=== PATIENT | female | born 1950 | race Caucasian/White ===

== ENCOUNTER 2017-09-20 02:14 | Emergency (ER) | payer MEDICARE, OTHER ==
[2017-09-20 02:23] VITALS: RESP 18
[2017-09-20] MEDS ORDERED: ONDANSETRON 4 MG/2 ML VIAL IVP STA (02:36)
[2017-09-20] MEDS ORDERED: MORPHINE SULFATE 4 MG/ML SYRINGE IV STA (02:36)
[2017-09-20] MEDS ORDERED: KETOROLAC 30 MG/ML 1 ML VIAL IVP STA (02:36)
[2017-09-20] MEDS ORDERED: SODIUM CHLORIDE 0.9% 1,000 ML IV STA (02:36)
--- NOTE | 2017-09-20 02:38 | ED ---
General Adult HPI - General Chief complaint: Abdominal Pain Stated complaint: Side pain Time Seen by Provider: 09/20/17 02:20 Source: patient, RN notes reviewed, old records reviewed Mode of arrival: ambulatory Limitations: no limitations - History of Present Illness Initial comments: This is a 67-year-old female to the ER for evaluation. She presents today for evaluation in regards to flank pain severe right-sided flank pain rating to groin. Back. Sudden onset tonight. Patient states she does have history of similar symptoms with no formal diagnosis. No significant travel history. Mild blood in the urine. Patient states she feels like she has to urinate but cannot. No modifying factors for pain - Related Data Home Medications Medication Instructions Recorded Confirmed Cholecalciferol [Vitamin D3] 1,000 unit PO DAILY 03/13/16 09/20/17 L.acidoph,Paracasei, B.lactis 1 cap PO DAILY 03/13/16 09/20/17 [Probiotic] [place]-3 Fatty Acids/Fish Oil [Fish 1 cap PO TID 03/13/16 09/20/17 Oil 1,000 mg Softgel] Ubidecarenone [Coenzyme Q10] 10 mg PO DAILY 09/20/17 09/20/17 Allergies Allergy/AdvReac Type Severity Reaction Status Date / Time No Known Allergies Allergy Verified 09/20/17 02:22 Review of Systems ROS Statement: Those systems with pertinent positive or pertinent negative responses have been documented in the HPI. ROS Other: All systems not noted in ROS Statement are negative. Past Medical History Past Medical History: CVA/TIA History of Any Multi-Drug Resistant Organisms: None Reported Past Surgical History: Joint Replacement Additional Past Surgical History / Comment(s): right total hip Past Psychological History: No Psychological Hx Reported Smoking Status: Former smoker Past Alcohol Use History: Occasional Past Drug Use History: None Reported General Exam Limitations: no limitations General appearance: alert, in no apparent distress Head exam: Present: atraumatic, normocephalic, normal inspection Eye exam: Present: normal appearance, PERRL, EOMI. Absent: scleral icterus, conjunctival injection, periorbital swelling ENT exam: Present: normal exam, mucous membranes moist Neck exam: Present: normal inspection. Absent: tenderness, meningismus, lymphadenopathy Respiratory exam: Present: normal lung sounds bilaterally. Absent: respiratory distress, wheezes, rales, rhonchi, stridor Cardiovascular Exam: Present: regular rate, normal rhythm, normal heart sounds. Absent: systolic murmur, diastolic murmur, rubs, gallop, clicks GI/Abdominal exam: Present: soft, normal bowel sounds. Absent: distended, tenderness, guarding, rebound, rigid Extremities exam: Present: normal inspection, full ROM, normal capillary refill. Absent: tenderness, pedal edema, joint swelling, calf tenderness Back exam: Present: normal inspection Neurological exam: Present: alert, oriented X3, CN II-XII intact Psychiatric exam: Present: normal affect, normal mood Skin exam: Present: warm, dry, intact, normal color. Absent: rash Course Vital Signs 09/20/17 02:17 Temperature 98.8 F Pulse Rate 72 Respiratory 18 Rate Blood Pressure 163/86 O2 Sat by Pulse 98 Oximetry - Reevaluation(s) Reevaluation #1: 09/20/17 03:15 patient has pain control Medical Decision Making - Medical Decision Making 67 female with R flank pain, positive kidney stone, will treat with pain control and inc fluids, ok for dc home. - Lab Data Result diagrams: 09/20/17 02:37 09/20/17 02:37 Lab Results 09/20/17 09/20/17 09/20/17 Range/Units 02:24 02:37 02:37 WBC 14.3 H (3.8-10.6) k/uL RBC 4.66 (3.80-5.40) m/uL Hgb 14.3 (11.4-16.0) gm/dL Hct 42.3 (34.0-46.0) % MCV 90.8 (80.0-100.0) fL MCH 30.6 (25.0-35.0) pg MCHC 33.8 (31.0-37.0) g/dL RDW 12.4 (11.5-15.5) % Plt Count 243 (150-450) k/uL Neutrophils % 86 % Lymphocytes % 11 % Monocytes % 3 % Eosinophils % 0 % Basophils % 0 % Neutrophils # 12.2 H (1.3-7.7) k/uL Lymphocytes # 1.5 (1.0-4.8) k/uL Monocytes # 0.4 (0-1.0) k/uL Eosinophils # 0.0 (0-0.7) k/uL Basophils # 0.1 (0-0.2) k/uL Sodium 142 (137-145) mmol/L Potassium 3.8 (3.5-5.1) mmol/L Chloride 104 (98-107) mmol/L Carbon Dioxide 27 (22-30) mmol/L Anion Gap 11 mmol/L BUN 15 (7-17) mg/dL Creatinine 0.70 (0.52-1.04) mg/dL Est GFR (CKD-EPI)AfAm >90 (>60 ml/min/1.73 sqM) Est GFR (CKD-EPI)NonAf >90 (>60 ml/min/1.73 sqM) Glucose 172 H (74-99) mg/dL Calcium 9.3 (8.4-10.2) mg/dL Total Bilirubin 1.0 (0.2-1.3) mg/dL AST 21 (14-36) U/L ALT 32 (9-52) U/L Alkaline Phosphatase 60 (38-126) U/L Total Protein 7.3 (6.3-8.2) g/dL Albumin 4.4 (3.5-5.0) g/dL Amylase 69 (30-110) U/L Lipase 341 H (23-300) U/L Urine Color Light Red Urine Appearance Turbid H (Clear) Urine pH 5.0 (5.0-8.0) Ur Specific [place] 1.025 (1.001-1.035) Urine Protein 1+ H (Negative) Urine Glucose (UA) Negative (Negative) Urine Ketones Trace H (Negative) Urine Blood Large H (Negative) Urine Nitrite Negative (Negative) Urine Bilirubin Negative (Negative) Urine Urobilinogen <2.0 (<2.0) mg/dL Ur Leukocyte Esterase Trace H (Negative) Urine RBC >182 H (0-5) /hpf Urine WBC 6 H (0-5) /hpf Uric Acid Crystals Moderate H (None) /hpf Amorphous Sediment Rare H (None) /hpf Urine Bacteria Many H (None) /hpf Urine Mucus Many H (None) /hpf - Radiology Data Radiology results: report reviewed (CT abd pelvis positive for kidney stone), image reviewed Disposition Clinical Impression: Kidney stone, Right ureteral stone Disposition: HOME SELF-CARE Condition: Good Instructions: Kidney Stones (ED) Referrals: Poli Jorge MD [Primary Care Provider] - 1-2 days
[2017-09-20 02:57] LABS: Basophils # (A) 0.1 k/uL (0-0.2); Basophils % (A) 0 %; Eosinophils % (A) 0 %; HCT 42.3 % (34.0-46.0); HGB 14.3 gm/dL (11.4-16.0); Lymphocytes # (A) 1.5 k/uL (1.0-4.8); Lymphocytes % (A) 11 %; MCH 30.6 pg (25.0-35.0); MCHC 33.8 g/dL (31.0-37.0); MCV 90.8 fL (80.0-100.0); Mean Platelet Volume 7.5; Monocytes # (A) 0.4 k/uL (0-1.0); Monocytes % (A) 3 %; Neutrophils # (A) 12.2 k/uL (1.3-7.7); Neutrophils % (A) 86 %; Platelet Count 243 k/uL (150-450); RBC 4.66 m/uL (3.80-5.40); RDW 12.4 % (11.5-15.5); WBC 14.3 k/uL (3.8-10.6)
[2017-09-20 03:05] LABS: Amorphous Sediment,Urine Rare /hpf; Appearance,Urine Turbid (Clear); Bacteria,Urine Many /hpf; Bilirubin,Urine Negative (Negative); Blood,Urine Large (Negative); Color,Urine Light Red; Glucose,Urine (UA) Negative (Negative); Ketones,Urine Trace (Negative); Leukocyte Esterase,Urine Trace (Negative); Mucus,Urine Many /hpf; Nitrite,Urine Negative (Negative); Protein,Urine 1+ (Negative); RBC,Urine >182 /hpf (0-5); Specific Gravity,Urine 1.025 (1.001-1.035); Uric Acid Crystals,Urine Moderate /hpf; Urobilinogen,Urine <2.0 mg/dL (<2.0); WBC,Urine 6 /hpf (0-5)
--- NOTE | 2017-09-20 03:06 | CT ---
EXAMINATION TYPE: CT abdomen pelvis wo con DATE OF EXAM: 09/20/2017 COMPARISON: NONE HISTORY: Rt flank pain CT DLP: 584.70 mGycm Automated exposure control for dose reduction was used. TECHNIQUE: Helical acquisition of images was performed from the lung bases through the pelvis. FINDINGS: Lung bases are clear of consolidation. There is no pleural effusion. There is no pericardial effusion . There is a 2 cm cyst in the left lobe of the liver. Bile ducts are not dilated. Gallbladder appears normal. Spleen appears normal. There is no pancreatic mass. Kidneys have normal size. There is right-sided hydronephrosis. There is mild right-sided hydroureter. There is metal artifact from right hip prosthesis. There is a possible 3 mm calculus in the distal r ight ureter. There is no retroperitoneal adenopathy. There is no ascites. There is no sign of free air. Appendix a ppears normal. I see no intestinal wall thickening. There are no dilated loops. Bladder is almost emp ty. There is also a 2 mm calcification at the floor of the pelvis on the right sided could also be a stone in the distal right ureter at the ureterovesical junction. There are vascular calcifications in the pelvis. I see no bony destructive process. IMPRESSION: RIGHT-SIDED HYDRONEPHROSIS AND HYDROURETER. POSSIBLE TINY STONE AT THE RIGHT URETEROVESICAL JUNCTION. POSSIBLE SMALL CALCULUS IN THE DISTAL RIGHT URETER. NORMAL APPENDIX.
[2017-09-20 03:09] LABS: ALT 32 U/L (9-52); AST 21 U/L (14-36); Albumin 4.4 g/dL (3.5-5.0); Alkaline Phosphatase 60 U/L (38-126); Amylase 69 U/L (30-110); Anion Gap 11 mmol/L; Blood Urea Nitrogen 15 mg/dL (7-17); Calcium 9.3 mg/dL (8.4-10.2); Carbon Dioxide 27 mmol/L (22-30); Chloride 104 mmol/L (98-107); Glucose 172 mg/dL (74-99); Lipase 341 U/L (23-300); Potassium 3.8 mmol/L (3.5-5.1); Sodium 142 mmol/L (137-145); Total Protein 7.3 g/dL (6.3-8.2)
[2017-09-20 03:16] VITALS: BP 129/62; PULSE 79; TEMP 98.7
[2017-09-20] MEDS ORDERED: TAMSULOSIN 0.4 MG CAP.ER.24H PO STA (03:18)
== END 2017-09-20 03:31 | disposition home or self-care (01) ==
LOC: EC 02:14
DX: N20.2 Calculus of kidney with calculus of ureter (principal); Z86.73 Personal history of transient ischemic attack (TIA), and cerebral infarction without residual deficits; Z87.891 Personal history of nicotine dependence
CPT/HCPCS: 36415; 80053; 82150; 83690; 85025; 81001; 87086; 74176; 99284; 96374; 96375 ×2; 96361; J2270; J2405; J1885

== ENCOUNTER 2017-10-07 16:36 | Inpatient (IN) | payer MEDICARE, OTHER ==
[2017-10-07] MEDS ORDERED: MORPHINE SULFATE/PF 10MG/10ML VL IV STA (16:53)
[2017-10-07] MEDS ORDERED: SODIUM CHLORIDE 0.9% 1,000 ML IV STA ×2 (16:53→20:46)
[2017-10-07] MEDS ORDERED: RX INFO: IV CONTRAST WAS GIVEN 1 EACH MISC MISCELLANE PRN (16:53)
[2017-10-07 17:38] LABS: Basophils # (A) 0.1 k/uL (0-0.2); Basophils % (A) 1 %; Eosinophils # (A) 0.1 k/uL (0-0.7); Eosinophils % (A) 1 %; HCT 41.8 % (34.0-46.0); HGB 15.2 gm/dL (11.4-16.0); Lymphocytes # (A) 1.8 k/uL (1.0-4.8); Lymphocytes % (A) 25 %; MCH 32.5 pg (25.0-35.0); MCHC 36.5 g/dL (31.0-37.0); Mean Platelet Volume 6.5; Monocytes # (A) 0.3 k/uL (0-1.0); Monocytes % (A) 5 %; Neutrophils # (A) 4.8 k/uL (1.3-7.7); Neutrophils % (A) 67 %; Platelet Count 271 k/uL (150-450); RBC 4.69 m/uL (3.80-5.40); RDW 12.2 % (11.5-15.5); WBC 7.2 k/uL (3.8-10.6)
[2017-10-07 17:43] LABS: Appearance,Urine Cloudy (Clear); Bilirubin,Urine Negative (Negative); Blood,Urine Large (Negative); Budding Yeast,Urine Few /hpf; Color,Urine Yellow; Glucose,Urine (UA) Negative (Negative); Ketones,Urine Trace (Negative); Leukocyte Esterase,Urine Moderate (Negative); Mucus,Urine Few /hpf; Nitrite,Urine Negative (Negative); Protein,Urine 1+ (Negative); RBC,Urine >182 /hpf (0-5); Specific Gravity,Urine 1.021 (1.001-1.035); Squamous Epithelial Cell,Urine 4 /hpf (0-4); Urobilinogen,Urine <2.0 mg/dL (<2.0); WBC,Urine 19 /hpf (0-5)
[2017-10-07 17:48] LABS: ALT 46 U/L (9-52); AST 28 U/L (14-36); Albumin 4.5 g/dL (3.5-5.0); Alkaline Phosphatase 57 U/L (38-126); Amylase 192 U/L (30-110); Anion Gap 14 mmol/L; Blood Urea Nitrogen 11 mg/dL (7-17); Calcium 9.7 mg/dL (8.4-10.2); Carbon Dioxide 26 mmol/L (22-30); Chloride 104 mmol/L (98-107); Glucose 90 mg/dL (74-99); Potassium 4.4 mmol/L (3.5-5.1); Sodium 144 mmol/L (137-145); Total Bilirubin 0.7 mg/dL (0.2-1.3); Total Protein 7.4 g/dL (6.3-8.2)
[2017-10-07 17:55] LABS: Lipase 2774 U/L (23-300)
--- NOTE | 2017-10-07 18:24 | ED ---
General Adult HPI - General Chief complaint: Abdominal Pain Stated complaint: kidney stones Time Seen by Provider: 10/07/17 16:53 Source: patient, RN notes reviewed, old records reviewed Mode of arrival: ambulatory Limitations: no limitations - History of Present Illness Initial comments: This is a 67-year-old female to the ER for evaluation today. Patient does say for eval is regarding revisit regarding kidney stone. Patient began with left flank pain earlier today. Patient does have history of kidney stones. Significant medications, no modifying factors for pain. Patient denies dysuria. No fevers. No other abdominal pain. Mild nausea no vomiting. Patient states with prior kidney stone she took the Flomax did not like, Flomax metered-dose discontinued it. She states she may not drink be drinking as much water as - Related Data Home Medications Medication Instructions Recorded Confirmed L.acidoph,Paracasei, B.lactis 1 cap PO DAILY 03/13/16 10/07/17 [Probiotic] [place]-3 Fatty Acids/Fish Oil [Fish 1 cap PO TID 03/13/16 10/07/17 Oil 1,000 mg Softgel] Ubidecarenone [Coenzyme Q10] 10 mg PO DAILY 09/20/17 10/07/17 Garlic 1 tab PO DAILY 10/07/17 10/07/17 Turmeric Root Extract [Turmeric] 500 mg PO DAILY 10/07/17 10/07/17 Previous Rx's Medication Instructions Recorded Ondansetron Odt [Zofran ODT] 4 mg PO Q8HR PRN #30 tab 10/07/17 Cephalexin [Keflex] 250 mg PO TID #15 cap 10/09/17 Allergies Allergy/AdvReac Type Severity Reaction Status Date / Time tamsulosin [From Flomax] AdvReac Dyspnea Verified 10/07/17 17:34 Review of Systems ROS Statement: Those systems with pertinent positive or pertinent negative responses have been documented in the HPI. ROS Other: All systems not noted in ROS Statement are negative. Past Medical History Past Medical History: CVA/TIA History of Any Multi-Drug Resistant Organisms: None Reported Past Surgical History: Joint Replacement Additional Past Surgical History / Comment(s): right total hip Past Psychological History: No Psychological Hx Reported Smoking Status: Former smoker Past Alcohol Use History: Occasional Past Drug Use History: None Reported - Past Family History Father Family Medical History: Myocardial Infarction ([place]) General Exam Limitations: no limitations General appearance: alert, in no apparent distress Head exam: Present: atraumatic, normocephalic, normal inspection Eye exam: Present: normal appearance, PERRL, EOMI. Absent: scleral icterus, conjunctival injection, periorbital swelling ENT exam: Present: normal exam, mucous membranes moist Neck exam: Present: normal inspection. Absent: tenderness, meningismus, lymphadenopathy Respiratory exam: Present: normal lung sounds bilaterally. Absent: respiratory distress, wheezes, rales, rhonchi, stridor Cardiovascular Exam: Present: regular rate, normal rhythm, normal heart sounds. Absent: systolic murmur, diastolic murmur, rubs, gallop, clicks GI/Abdominal exam: Present: soft, normal bowel sounds. Absent: distended, tenderness, guarding, rebound, rigid Extremities exam: Present: normal inspection, full ROM, normal capillary refill. Absent: tenderness, pedal edema, joint swelling, calf tenderness Back exam: Present: normal inspection Neurological exam: Present: alert, oriented X3, CN II-XII intact Psychiatric exam: Present: normal affect, normal mood Skin exam: Present: warm, dry, intact, normal color. Absent: rash Course Vital Signs 10/07/17 10/07/17 10/07/17 16:48 19:25 21:16 Temperature 98.2 F 98.4 F 97.7 F Pulse Rate 74 78 78 Respiratory 18 18 18 Rate Blood Pressure 172/95 141/78 154/78 O2 Sat by Pulse 97 96 97 Oximetry - Reevaluation(s) Reevaluation #1: 10/07/17 18:24 Medical record is reviewed including prior ER visit for positive kidney stone Reevaluation #2: 10/07/17 18:24 Patient does not want further CAT scan imaging. Medical Decision Making - Medical Decision Making 67 female the ER for evaluation of abdominal pain. Patient states she does have history of kidney stones, does not want further imaging regarding kidney stones. The pain is significant. It is same flank pain with same radiation. Patient denies any nausea vomiting and epigastric pain. Patient is also found to have pancreatitis. - Lab Data Result diagrams: 10/08/17 11:37 10/08/17 11:37 Lab Results 10/07/17 10/07/17 10/07/17 Range/Units 16:50 16:50 16:50 WBC 7.2 (3.8-10.6) k/uL RBC 4.69 (3.80-5.40) m/uL Hgb 15.2 (11.4-16.0) gm/dL Hct 41.8 (34.0-46.0) % MCV 89.0 (80.0-100.0) fL MCH 32.5 (25.0-35.0) pg MCHC 36.5 (31.0-37.0) g/dL RDW 12.2 (11.5-15.5) % Plt Count 271 (150-450) k/uL Neutrophils % 67 % Lymphocytes % 25 % Monocytes % 5 % Eosinophils % 1 % Basophils % 1 % Neutrophils # 4.8 (1.3-7.7) k/uL Lymphocytes # 1.8 (1.0-4.8) k/uL Monocytes # 0.3 (0-1.0) k/uL Eosinophils # 0.1 (0-0.7) k/uL Basophils # 0.1 (0-0.2) k/uL Sodium 144 (137-145) mmol/L Potassium 4.4 (3.5-5.1) mmol/L Chloride 104 (98-107) mmol/L Carbon Dioxide 26 (22-30) mmol/L Anion Gap 14 mmol/L BUN 11 (7-17) mg/dL Creatinine 0.68 (0.52-1.04) mg/dL Est GFR (CKD-EPI)AfAm >90 (>60 ml/min/1.73 sqM) Est GFR (CKD-EPI)NonAf >90 (>60 ml/min/1.73 sqM) Glucose 90 (74-99) mg/dL Plasma Lactic Acid [place] 1.9 (0.7-2.0) mmol/L Calcium 9.7 (8.4-10.2) mg/dL Total Bilirubin 0.7 (0.2-1.3) mg/dL AST 28 (14-36) U/L ALT 46 (9-52) U/L Alkaline Phosphatase 57 (38-126) U/L Total Protein 7.4 (6.3-8.2) g/dL Albumin 4.5 (3.5-5.0) g/dL Amylase 192 H (30-110) U/L Lipase 2774 H (23-300) U/L Urine Color Urine Appearance (Clear) Urine pH (5.0-8.0) Ur Specific [place] (1.001-1.035) Urine Protein (Negative) Urine Glucose (UA) (Negative) Urine Ketones (Negative) Urine Blood (Negative) Urine Nitrite (Negative) Urine Bilirubin (Negative) Urine Urobilinogen (<2.0) mg/dL Ur Leukocyte Esterase (Negative) Urine RBC (0-5) /hpf Urine WBC (0-5) /hpf Ur Squamous Epith Cells (0-4) /hpf Urine Mucus (None) /hpf Urine Yeast (Budding) (None) /hpf 10/07/17 Range/Units 16:50 WBC (3.8-10.6) k/uL RBC (3.80-5.40) m/uL Hgb (11.4-16.0) gm/dL Hct (34.0-46.0) % MCV (80.0-100.0) fL MCH (25.0-35.0) pg MCHC (31.0-37.0) g/dL RDW (11.5-15.5) % Plt Count (150-450) k/uL Neutrophils % % Lymphocytes % % Monocytes % % Eosinophils % % Basophils % % Neutrophils # (1.3-7.7) k/uL Lymphocytes # (1.0-4.8) k/uL Monocytes # (0-1.0) k/uL Eosinophils # (0-0.7) k/uL Basophils # (0-0.2) k/uL Sodium (137-145) mmol/L Potassium (3.5-5.1) mmol/L Chloride (98-107) mmol/L Carbon Dioxide (22-30) mmol/L Anion Gap mmol/L BUN (7-17) mg/dL Creatinine (0.52-1.04) mg/dL Est GFR (CKD-EPI)AfAm (>60 ml/min/1.73 sqM) Est GFR (CKD-EPI)NonAf (>60 ml/min/1.73 sqM) Glucose (74-99) mg/dL Plasma Lactic Acid [place] (0.7-2.0) mmol/L Calcium (8.4-10.2) mg/dL Total Bilirubin (0.2-1.3) mg/dL AST (14-36) U/L ALT (9-52) U/L Alkaline Phosphatase (38-126) U/L Total Protein (6.3-8.2) g/dL Albumin (3.5-5.0) g/dL Amylase (30-110) U/L Lipase (23-300) U/L Urine Color Yellow Urine Appearance Cloudy H (Clear) Urine pH 5.0 (5.0-8.0) Ur Specific [place] 1.021 (1.001-1.035) Urine Protein 1+ H (Negative) Urine Glucose (UA) Negative (Negative) Urine Ketones Trace H (Negative) Urine Blood Large H (Negative) Urine Nitrite Negative (Negative) Urine Bilirubin Negative (Negative) Urine Urobilinogen <2.0 (<2.0) mg/dL Ur Leukocyte Esterase Moderate H (Negative) Urine RBC >182 H (0-5) /hpf Urine WBC 19 H (0-5) /hpf Ur Squamous Epith Cells 4 (0-4) /hpf Urine Mucus Few H (None) /hpf Urine Yeast (Budding) Few H (None) /hpf - Radiology Data Radiology results: report reviewed (Ultrasound reveals ultrasound gallbladder is negative), image reviewed Disposition Clinical Impression: Kidney stone, Right ureteral stone, Pancreatitis Disposition: ADMITTED IP TO THIS [facility] Condition: Fair
[2017-10-07] MEDS ORDERED: KETOROLAC 30 MG/ML 1 ML VIAL IVP STA (18:40)
--- NOTE | 2017-10-07 19:04 | US ---
EXAMINATION TYPE: US renals and bladder DATE OF EXAM: 10/07/2017 COMPARISON: NONE CLINICAL HISTORY: Pain. RLQ pain hx of stone EXAM MEASUREMENTS: Right Kidney: 10.6 x 5.2 x 4.7 cm Left Kidney: 10.1 x 4.7 x 4.6 cm Lobulated kidneys mild hydronephrosis on right side. Tiny calculi seen on ct scan not seen on ultraso und. Right Kidney: Hydronephrosis Left Kidney: No hydronephrosis or masses seen Bladder: Anechoic Bilateral Jets seen: Yes No nephrolithiasis is seen. No masses are identified. The urinary bladder is anechoic. Bilateral ureteral jets are seen. IMPRESSION: There is new right-sided hydronephrosis compared to old ultrasound exam of 05/22/2014. There is no hy dronephrosis on the left side. No renal atrophy. There are bilateral ureteral jets and I do not see e vidence for acute obstruction.
--- NOTE | 2017-10-07 20:32 | US ---
EXAMINATION TYPE: US gallbladder DATE OF EXAM: 10/07/2017 COMPARISON: NONE CLINICAL HISTORY: Pain. Pain elevated labs. EXAM MEASUREMENTS: Liver Length: 16.4 cm Gallbladder Wall: 0.3 cm CBD: 0.5 cm Right Kidney: 10.7 x 5.7 x 5.3 cm Pancreas: Obscured by bowel gas Liver: Complex area seen left lobe measuring 1.8 x 1.1 x 2.3 cm. Gallbladder: wnl Evidence for sonographic Webster's sign: No CBD: wnl Right Kidney: Mild to moderate hydronephrosis. IMPRESSION: There is mild right-sided hydronephrosis. No gallstones or dilated ducts. There is an ova l-shaped area of complex echogenicity in the left lobe of the liver that could be hemangioma or septa nilson cyst. No free fluid. Right-sided hydronephrosis and liver lesion are unchanged compared to CT sca n of 09/20/2017.
[2017-10-07] MEDS ORDERED: SODIUM CHLORIDE 0.9% 1,000 ML IV ONE (20:45)
[2017-10-07] MEDS ORDERED: ONDANSETRON 4 MG/2 ML VIAL IVP PRN (20:46)
[2017-10-07] MEDS ORDERED: ONDANSETRON 4 MG/2 ML VIAL IVP STA (20:46)
[2017-10-07] MEDS ORDERED: SODIUM CHLORIDE 0.9% 500 ML IV STA (20:46)
[2017-10-07] MEDS ORDERED: PANTOPRAZOLE 40 MG/10 ML VIAL IVP STA (20:46)
[2017-10-07] MEDS ORDERED: MORPHINE SULFATE/PF 10MG/10ML VL IVP PRN (20:46)
[2017-10-07 23:06] VITALS: BMI 32.2
[2017-10-08] MEDS: PANTOPRAZOLE 40 MG/10 ML VIAL IVP SCH (08:58)
[2017-10-08 11:50] LABS: Basophils # (A) 0.1 k/uL (0-0.2); Basophils % (A) 1 %; Eosinophils # (A) 0.1 k/uL (0-0.7); Eosinophils % (A) 1 %; HCT 38.3 % (34.0-46.0); HGB 13.3 gm/dL (11.4-16.0); Lymphocytes # (A) 1.8 k/uL (1.0-4.8); Lymphocytes % (A) 34 %; MCH 31.5 pg (25.0-35.0); MCHC 34.6 g/dL (31.0-37.0); Mean Platelet Volume 7.8; Monocytes # (A) 0.3 k/uL (0-1.0); Monocytes % (A) 6 %; Neutrophils # (A) 3.1 k/uL (1.3-7.7); Neutrophils % (A) 57 %; Platelet Count 217 k/uL (150-450); RBC 4.21 m/uL (3.80-5.40); RDW 12.4 % (11.5-15.5); WBC 5.4 k/uL (3.8-10.6)
[2017-10-08] MEDS: SODIUM CHLORIDE 0.9% 1,000 ML IV SCH ×2 (11:58→21:05)
[2017-10-08 12:08] LABS: ALT 39 U/L (9-52); AST 24 U/L (14-36); Albumin 3.4 g/dL (3.5-5.0); Alkaline Phosphatase 46 U/L (38-126); Anion Gap 11 mmol/L; Blood Urea Nitrogen 8 mg/dL (7-17); Calcium 8.7 mg/dL (8.4-10.2); Carbon Dioxide 25 mmol/L (22-30); Chloride 109 mmol/L (98-107); Glucose 81 mg/dL (74-99); Sodium 145 mmol/L (137-145); Total Bilirubin 1.3 mg/dL (0.2-1.3)
--- NOTE | 2017-10-08 13:58 | HP ---
HISTORY AND PHYSICAL DATE OF ADMISSION: 10/07/2017. PRESENTING COMPLAINT: Right flank pain. HISTORY OF PRESENTING COMPLAINT: This is a very pleasant 67-year-old patient of Dr. Poli Jorge out of [facility]. Patient has had a history of kidney stones before. Had a stroke 10 years ago. Patient presents with increasing pain in the right flank, very minimal nausea, no fever, noticed some blood in the urine with urinary urgency, feeling tired, run down. In the ER, patient is found to have acute pancreatitis, was made n.p.o. with amylase 192 and lipase of 2774. Urine was rather infected-appearing. Patient was put on IV fluids and admitted for the same. REVIEW OF SYSTEMS: CONSTITUTIONAL: Tired. HEENT: None. RESPIRATORY: None. CARDIOVASCULAR: None. GASTROINTESTINAL: As above. GENITOURINARY: As above. MUSCULOSKELETAL: Arthritic pain in knees. DERMATOLOGICAL: None. HEMATOLOGICAL: None. LYMPHATIC: None. PSYCHIATRY: None. NEUROLOGICAL: None. PAST MEDICAL HISTORY: Kidney stones, stroke. PAST SURGICAL HISTORY: Right hip replacement. SOCIAL HISTORY: Patient drinks a: glass of wine a day, stopped smoking 10 years ago, smoked off and on for about 30 years, . FAMILY HISTORY: Myocardial infarction. HOME MEDICATIONS: 1. Turmeric 5 mg p.o. daily. 2. Garlic 1 tablet p.o. daily. 3. CO Q10 tent mg p.o. daily. 4. Fish oil 1 capsule p.o. t.i.d. 5. Probiotic 1 capsule p.o. daily. 6. Vitamin D3 five thousand units p.o. daily. 7. Zofran 4 mg q.8 p.r.n. ALLERGIES: FLOMAX. PHYSICAL EXAMINATION: Vital signs on presentation, afebrile, pulse 74, respiratory rate 18, blood pressure 132/75, pulse ox 97% on room air, repeat blood pressure 140/78. GENERAL APPEARANCE: Well built, BMI 32.2, sitting up, not in distress. EYES: Pupils equal, conjunctivae normal. HEENT: External appearance of nose and ears normal, oral cavity normal. NECK: JVD not raised. Mass not palpable. Respiratory effort normal. Lungs are clear. CARDIOVASCULAR: First and second sounds are normal, no edema. ABDOMEN: Minimal upper abdominal tenderness, minimal in the right flank. No guarding, rigidity. Liver and spleen not palpable. LYMPHATIC: No lymph palpable in neck or axillae. PSYCHIATRY: Alert and oriented x3. Mood and affect normal. NEUROLOGICAL: Pupils equal, cranial nerves grossly intact. Power and sensation grossly intact. MUSCULOSKELETAL: Evidence of some osteoarthritis in the knees. INVESTIGATIONS: White count 7.2, hemoglobin 15.2, platelets 271. Potassium 4.4, BUN and creatinine is normal. Amylase 192, lipase 2074. UA positive for blood, leuko esterase, WBC. Renal ultrasound shows new right-sided hydronephrosis compared to old ultrasound. Gallbladder ultrasound shows no gallstones with dilated ducts. ASSESSMENT: 1. Acute pancreatitis, likely idiopathic. 2. Acute urinary tract infection. 3. Right hydronephrosis, reported to be new on the renal ultrasound. There is no mention of an obvious stone. PLAN: Patient is put on IV fluids. Abdominal exam is actually improved. Will repeat pancreatic enzymes. Will get a urology consultation. I started the patient on oral Keflex for the UTI. Care was discussed with the patient's at the bedside. Questions were answered. MMODL / IJN: [id number] /
[2017-10-08] MEDS: CEPHALEXIN 250 MG CAP PO SCH ×2 (14:13→21:04)
[2017-10-08 14:21] LABS: Amylase 55 U/L (30-110); Lipase 105 U/L (23-300)
[2017-10-08] MEDS: ENOXAPARIN 40 MG/0.4 ML SYRINGE SQ SCH (16:19)
[2017-10-09 07:39] LABS: Amylase 49 U/L (30-110); Lipase 140 U/L (23-300)
[2017-10-09 07:59] VITALS: RESP 18
[2017-10-09] MEDS: PANTOPRAZOLE 40 MG/10 ML VIAL IVP SCH (08:21)
[2017-10-09] MEDS: CEPHALEXIN 250 MG CAP PO SCH ×2 (08:21→16:51)
[2017-10-09] MEDS: ENOXAPARIN 40 MG/0.4 ML SYRINGE SQ SCH (08:21)
[2017-10-09] MEDS: SODIUM CHLORIDE 0.9% 1,000 ML IV SCH ×2 (08:21→16:50)
--- NOTE | 2017-10-09 10:13 | P.GSCN ---
History of Present Illness Consult date: 10/09/17 Reason for Consult: Right hydronephrosis History of present illness: The patient is a 67-year-old female admitted through the emergency room on 10/07 for evaluation of right flank pain and possible acute pancreatitis. The patient said her pain was associated with nausea and vomiting, urinary urgency and some blood in her urine. She has a history of a right ureteral calculus which was identified on a noncontrast computed tomography scan of the abdomen and pelvis performed on 09/20/2017. At that time the calculus appeared to be less than 2 mm in size and located at the right ureterovesical junction. The patient believes that she passed the calculus several weeks ago and says she was comfortable up until the date of admission. When seen in the emergency room she was noted to have microscopic hematuria and a renal ultrasound on 10/07 showed mild to moderate hydronephrosis. The patient was also noted to have an amylase of 192 and a lipase of 2774. She was presumed to have acute pancreatitis and was admitted for further evaluation. She says that she has remained relatively comfortable since she was admitted. She no longer has any urinary urgency or hematuria. She was not able to strain her urine on all occasions since she was admitted and is uncertain as to whether she has passed another small calculus. The patient has no previous history of urolithiasis although she did have an episode of right flank pain 3 years ago. Her family history is significant in that her daughter has had kidney stones. She has no previous history of pancreatitis. 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) History of Any Multi-Drug Resistant Organisms: None Reported Past Surgical History: Joint Replacement (Right total hip arthroplasty) Additional Past Surgical History / Comment(s): right total hip Past Anesthesia/Blood Transfusion Reactions: No Reported Reaction Past Psychological History: No Psychological Hx Reported Smoking Status: Former smoker Past Alcohol Use History: Occasional Past Drug Use History: None Reported - Past Family History Father Family Medical History: Myocardial Infarction ([place]) Medications and Allergies Home Medications Medication Instructions Recorded Confirmed Type Cholecalciferol [Vitamin D3] 5,000 unit PO DAILY 03/13/16 10/07/17 History L.acidoph,Paracasei, B.lactis 1 cap PO DAILY 03/13/16 10/07/17 History [Probiotic] [place]-3 Fatty Acids/Fish Oil [Fish 1 cap PO TID 03/13/16 10/07/17 History Oil 1,000 mg Softgel] Ubidecarenone [Coenzyme Q10] 10 mg PO DAILY 09/20/17 10/07/17 History Garlic 1 tab PO DAILY 10/07/17 10/07/17 History Ondansetron Odt [Zofran ODT] 4 mg PO Q8HR PRN #30 tab 10/07/17 Rx Turmeric Root Extract [Turmeric] 500 mg PO DAILY 10/07/17 10/07/17 History Allergies Allergy/AdvReac Type Severity Reaction Status Date / Time tamsulosin [From Flomax] AdvReac Dyspnea Verified 10/07/17 17:34 Surgical - Exam Vital Signs Temp Pulse Resp BP Pulse Ox 98.2 F 74 18 172/95 97 10/07/17 16:48 10/07/17 16:48 10/07/17 16:48 10/07/17 16:48 10/07/17 16:48 - General well developed, well nourished, no distress, obese - Respiratory normal respiratory effort - Abdomen Abdomen: soft, non tender, no organomegaly Results - Labs 10/08/17 11:37 10/08/17 11:37 Abnormal Lab Results - Last 24 Hours (Table) 10/08/17 Range/Units 11:37 Chloride 109 H (98-107) mmol/L Total Protein 6.0 L (6.3-8.2) g/dL Albumin 3.4 L (3.5-5.0) g/dL Microbiology - Last 24 Hours (Table) 10/07/17 16:50 Urine Culture - Final Urine,Voided Diabetes panel 10/08/17 Range/Units 11:37 Sodium 145 (137-145) mmol/L Potassium 4.0 (3.5-5.1) mmol/L Chloride 109 H (98-107) mmol/L Carbon Dioxide 25 (22-30) mmol/L BUN 8 (7-17) mg/dL Creatinine 0.60 (0.52-1.04) mg/dL Glucose 81 (74-99) mg/dL Calcium 8.7 (8.4-10.2) mg/dL AST 24 (14-36) U/L ALT 39 (9-52) U/L Alkaline Phosphatase 46 (38-126) U/L Total Protein 6.0 L (6.3-8.2) g/dL Albumin 3.4 L (3.5-5.0) g/dL Calcium panel 10/08/17 Range/Units 11:37 Calcium 8.7 (8.4-10.2) mg/dL Albumin 3.4 L (3.5-5.0) g/dL Pituitary panel 10/08/17 Range/Units 11:37 Sodium 145 (137-145) mmol/L Potassium 4.0 (3.5-5.1) mmol/L Chloride 109 H (98-107) mmol/L Carbon Dioxide 25 (22-30) mmol/L BUN 8 (7-17) mg/dL Creatinine 0.60 (0.52-1.04) mg/dL Glucose 81 (74-99) mg/dL Calcium 8.7 (8.4-10.2) mg/dL Adrenal panel 10/08/17 Range/Units 11:37 Sodium 145 (137-145) mmol/L Potassium 4.0 (3.5-5.1) mmol/L Chloride 109 H (98-107) mmol/L Carbon Dioxide 25 (22-30) mmol/L BUN 8 (7-17) mg/dL Creatinine 0.60 (0.52-1.04) mg/dL Glucose 81 (74-99) mg/dL Calcium 8.7 (8.4-10.2) mg/dL Total Bilirubin 1.3 (0.2-1.3) mg/dL AST 24 (14-36) U/L ALT 39 (9-52) U/L Alkaline Phosphatase 46 (38-126) U/L Total Protein 6.0 L (6.3-8.2) g/dL Albumin 3.4 L (3.5-5.0) g/dL - Imaging CT scan - abdomen: image reviewed, other Assessment and Plan (1) Right ureteral stone Narrative/Plan: The patient's history and renal ultrasound are consistent with recent passage of a small right ureteral calculus. This would explain her abdominal and flank pain on admission. I believe the likelihood that she had acute pancreatitis at the same time is very low based on the rapid normalization of her lipase level within 24 hours of admission and the normal amylase levels. I plan no further evaluation. Current Visit: Yes Status: Acute Code(s): N20.1 - CALCULUS OF URETER SNOMED Code(s): 05657420
[2017-10-09 15:06] VITALS: PULSE 83; TEMP 97.9
[2017-10-09 15:08] VITALS: BP 122/66
--- NOTE | 2017-10-09 17:24 | P.CONS ---
History of Present Illness - Reason for Consult Consult date: 10/09/17 Pancreatitis - History of Present Illness The patient is a 67-year-old female who was admitted through the emergency room on 10/07 for evaluation of right flank pain and possible acute pancreatitis. The patient said her pain was associated with nausea and vomiting, urinary urgency and some blood in her urine. She has a history of a right ureteral calculus which was identified on a noncontrast computed tomography scan of the abdomen and pelvis performed on 09/20/2017. At that time the calculus appeared to be less than 2 mm in size and located at the right ureterovesical junction. The patient believes that she passed the calculus shortly after that and she promoted for analysis to her PCP office. She says she was comfortable up until the date of this admission. When seen in the emergency room she was noted to have microscopic hematuria and a renal ultrasound on 10/07 showed mild to moderate hydronephrosis. The patient was also noted to have an amylase of 192 and a lipase of 2774. She was presumed to have acute pancreatitis and was admitted for further evaluation. When asked to see her for possible pancreatitis. The patient had elevation in her lipase back on September 20. Both times her lipase has improved fairly quickly. She denied any history of alcohol dependency or gallbladder disease. No jaundice, fever or chills. Review of Systems Constitutional: Denies fever, chills, sweats, weight gain, or loss. HEENT: Negative for migraines, blurred vision or loss, earaches, drainage, tinnitus, oral mucosal lesions, dysphagia, or odynophagia. CARDIAC: Negative for chest pain, arrhythmias, or palpitation. RESPIRATORY: Negative for shortness of breath, hemoptysis, cough, or sputum production. GI: See HPI for pertinent findings. : Negative for hematuria, urgency, frequency, polyuria, or dysuria. MUSCULOSKELETAL: Negative for muscle aches, swelling, arthritis, and arthralgias. NEUROLOGIC: Negative for stroke or TIA. ENDOCRINE: Negative for thyroid problems. SKIN: Negative for rash or itching. 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) History of Any Multi-Drug Resistant Organisms: None Reported Past Surgical History: Joint Replacement (Right total hip arthroplasty) Additional Past Surgical History / Comment(s): right total hip Past Anesthesia/Blood Transfusion Reactions: No Reported Reaction Past Psychological History: No Psychological Hx Reported Smoking Status: Former smoker Past Alcohol Use History: Occasional Past Drug Use History: None Reported - Past Family History Father Family Medical History: Myocardial Infarction ([place]) Medications and Allergies Home Medications Medication Instructions Recorded Confirmed Type L.acidoph,Paracasei, B.lactis 1 cap PO DAILY 03/13/16 10/07/17 History [Probiotic] [place]-3 Fatty Acids/Fish Oil [Fish 1 cap PO TID 03/13/16 10/07/17 History Oil 1,000 mg Softgel] Ubidecarenone [Coenzyme Q10] 10 mg PO DAILY 09/20/17 10/07/17 History Garlic 1 tab PO DAILY 10/07/17 10/07/17 History Ondansetron Odt [Zofran ODT] 4 mg PO Q8HR PRN #30 tab 10/07/17 Rx Turmeric Root Extract [Turmeric] 500 mg PO DAILY 10/07/17 10/07/17 History Cephalexin [Keflex] 250 mg PO TID #15 cap 10/09/17 Rx Allergies Allergy/AdvReac Type Severity Reaction Status Date / Time tamsulosin [From Flomax] AdvReac Dyspnea Verified 10/07/17 17:34 Physical Exam Vitals: Vital Signs Temp Pulse Resp BP Pulse Ox 10/09/17 15:00 97.9 F 83 18 122/66 91 L 10/09/17 07:00 99.2 F 64 18 137/74 96 10/08/17 23:00 97.1 F L 66 16 132/80 97 Intake and Output 10/09/17 10/09/17 10/09/17 06:59 14:59 22:59 Intake Total 800 2000 Balance 800 2000 Intake: Intake, IV Titration 800 800 Amount Sodium Chloride 0.9% 1, 800 800 000 ml @ 100 mls/hr IV . Q10H [facility] Rx#:[id number] Oral 1200 Other: Voiding Method Toilet Toilet # Voids 0 2 Weight 85.132 kg General appearance: The patient is alert, oriented, in no acute distress. HET: Head is normocephalic and atraumatic. Pupils are equal and reactive. Oropharynx is clear without lesions. Neck: Supple without lymphadenopathy. Trachea midline. Heart: S1 S2. Regular rate and rhythm. Lungs: No crackles or wheezes are heard. Abdomen: Soft, nontender, nondistended with bowel sounds. No peritoneal signs. No palpable organomegaly or masses. Extremities: Normal skin color and turgor. No cyanosis, rash, ulceration, clubbing, or edema. Radial and pedal pulses are 2/4 bilaterally. Neurological: No focal deficits. Strength and sensation are grossly intact. Results CBC & Chem 7: 10/08/17 11:37 10/08/17 11:37 Labs: Microbiology - Last 24 Hours (Table) 10/07/17 16:50 Urine Culture - Final Urine,Voided Assessment and Plan Assessment: Right flank pain and elevated lipase and right hydronephrosis most likely related to ureteral calculus as opposed to pancreatitis. The patient has improved and her lipase is now normal Plan: Agree with your current management. I did not schedule any additional workup for possible pancreatic or biliary tract disease at this time. We will keep that as a contingency based on her course.
--- NOTE | 2017-10-09 21:16 | DS ---
DISCHARGE SUMMARY DATE OF ADMISSION: 10/07/2017. DATE OF DISCHARGE: 10/09/2017 FINAL DIAGNOSES: 1. Acute pancreatitis, idiopathic. 2. Acute urinary tract infection. 3. Right hydronephrosis felt to be chronic. 4. Possible right ureteral stone that she passed. CONSULTATION: Dr. Tovar from Urology. HOSPITAL COURSE: This patient presented with abdominal pain, found to have acute pancreatitis that resolved, also found to have UTI. The patient had right hydronephrosis felt to be possibly chronic. Seen by Dr. Tovar. The patient may have had a right ureteral stone that probably passed. EXAMINATION: Abdomen is soft, nontender. Patient did tolerate a diet, told to maintain a low-fat diet. The patient's calcium supplement has been discontinued because of the stones. DISCHARGE MEDICATIONS: 1. Probiotic 1 capsule p.o. daily. 2. Fish oil 1000 mg p.o. t.i.d. 3. Keflex 250 mg p.o. t.i.d. Follow up with Dr. Tovar in 2 weeks. Follow up with Dr. Poli Jorge in [facility] in 3 days. DIET: Low-fat diet. MMODL / IJN: [id number] /
== END 2017-10-09 18:25 | disposition home or self-care (01) | DRG 439 ==
LOC: EC 16:36 → 5MS5E 20:45
PROVIDERS: ADMIT Hospitalist; ATTEND Hospitalist
DX: K85.00 Idiopathic acute pancreatitis without necrosis or infection (principal); N13.2 Hydronephrosis with renal and ureteral calculous obstruction; N39.0 Urinary tract infection, site not specified; Z82.49 Family history of ischemic heart disease and other diseases of the circulatory system; Z86.73 Personal history of transient ischemic attack (TIA), and cerebral infarction without residual deficits; Z87.442 Personal history of urinary calculi; Z87.891 Personal history of nicotine dependence; Z96.641 Presence of right artificial hip joint; Z88.8 Allergy status to other drugs, medicaments and biological substances; Z79.899 Other long term (current) drug therapy
CPT/HCPCS: 36415; 76705; 76770; 80053; 81001; 82150; 83605; 83690; 85025; 87086; 96361; 96374; 96375; 99285

== ENCOUNTER → 2020-08-19 | Outpatient (CLI) | payer MEDICARE, OTHER ==
[2020-08-19 15:01] LABS: Basophils # (A) 0.05 X 10*3/uL (0.00-0.10); Eosinophils # (A) 0.09 X 10*3/uL (0.04-0.35); Eosinophils % (A) 1.7 %; HCT 45.2 % (37.2-46.3); HGB 15.3 g/dL (12.0-15.0); Lymphocytes # (A) 1.91 X 10*3/uL (0.90-5.00); Lymphocytes % (A) 36.4 %; MCH 31.5 pg (27.0-32.0); MCHC 33.8 g/dL (32.0-37.0); MCV 93.2 fL (80.0-97.0); Mean Platelet Volume 9.7 fL (9.5-12.2); Monocytes # (A) 0.44 X 10*3/uL (0.20-1.00); Monocytes % (A) 8.4 %; Neutrophils # (A) 2.76 X 10*3/uL (1.80-7.70); Neutrophils % (A) 52.5 %; Platelet Count 260 X 10*3/uL (140-440); RBC 4.85 X 10*6/uL (4.10-5.20); RDW 11.8 % (11.5-14.5); WBC 5.25 X 10*3/uL (4.50-10.00)
[2020-08-19 15:40] LABS: African American GFR (CKD) 103.2 (60.0-200.0); Albumin 4.7 g/dL (3.80-4.90); Albumin/Globulin Ratio 2.35 (1.60-3.17); Anion Gap 5.8 mmol/L (4.00-12.00); BUN/Creat Ratio 15.71 Ratio (12.00-20.00); Calcium 9.4 mg/dL (8.7-10.3); Carbon Dioxide 30.2 mmol/L (21.6-31.8); Chol/HDL Ratio 3.5; LDL Cholesterol,Calculated 133.8 mg/dL (0.0-131.0); Potassium 4.9 mmol/L (3.5-5.5); Total Protein 6.7 g/dL (6.2-8.2); VLDL Calculation 21.2 mg/dL (5.00-40.00)
[2020-08-19 15:48] LABS: T4, Free (Free Thyroxine) 1.3 ng/dL (0.80-1.80)
[2020-08-19 16:45] LABS: Hemoglobin A1C 5.3 % (4.0-6.0)
== END | disposition home or self-care (01) ==
LOC: LABWHC1 09:20
PROVIDERS: ATTEND Nurse Practitioner Family
DX: Z00.01 Encounter for general adult medical examination with abnormal findings (principal); E78.5 Hyperlipidemia, unspecified; E55.9 Vitamin D deficiency, unspecified
CPT/HCPCS: 36415; 80053; 80061; 82306; 83036; 84439; 84443; 85025

== ENCOUNTER 2024-03-10 14:10 | Day surgery (SDC) | payer MEDICARE, OTHER ==
[2024-03-10] MEDS: IV FLUID CONTINUATION 1,000 ML IV ONE (15:18)
[2024-03-10] MEDS: LACTATED RINGERS 1,000 ML IV SCH (15:20)
[2024-03-10 15:22] VITALS: TEMP 98
[2024-03-10] MEDS ORDERED: PROPOFOL 10 MG/ML 20 ML VIAL IV ONE (16:33)
--- NOTE | 2024-03-10 16:49 | P.PCN ---
Date of Procedure: 03/10/24 Procedure(s) Performed: BRIEF HISTORY: Patient is a 73-year-old pleasant white female scheduled for an elective colonoscopy as a part of screening for colon cancer. PROCEDURE PERFORMED: Colonoscopy with biopsy. PREOPERATIVE DIAGNOSIS: Screening for colon cancer. IV sedation per Anesthesia. PROCEDURE: After informed consent was obtained, the patient, was brought into the endoscopy unit. IV sedation was administered by Anesthesia under continuous monitoring. Digital rectal examination was normal. Initially the Olympus CF-160 flexible video colonoscope was then inserted in the rectum, gradually advanced into the cecum without any difficulty. Careful examination was performed as the scope was gradually being withdrawn. Ileocecal valve and the appendiceal orifice were visualized and appeared normal. Prep was fair.. Mucosa of the cecum, had a 4 mm sessile polyp removed by cold biopsy. Rest of the ascending colon, transverse colon, descending colon, sigmoid colon, and rectum appeared normal. Moderate sigmoid diverticulosis. Retroflexion was performed in the rectum and no lesions were seen. The patient tolerated the procedure well. IMPRESSION: 4 mm cecal polyp status post cold biopsy Moderate diverticulosis RECOMMENDATIONS: Findings of this examination were discussed with the patient as well as her family. She was advised to follow-up with the biopsy results. If the biopsy reveals adenoma she can have repeat colonoscopy in 5 years..
[2024-03-10 17:11] VITALS: RESP 16
[2024-03-10 17:16] VITALS: BP 146/81; PULSE 83
== END 2024-03-10 17:54 ==
LOC: ORWHC2ENDO 14:10
PROVIDERS: ATTEND Internal Medicine Gastroenterology
DX: Z12.11 Encounter for screening for malignant neoplasm of colon (principal); D12.0 Benign neoplasm of cecum; K57.30 Diverticulosis of large intestine without perforation or abscess without bleeding
CPT/HCPCS: 45380; 88305

== ENCOUNTER → 2024-10-02 | Outpatient (CLI) | payer MEDICARE, OTHER ==
[2024-10-02 15:18] LABS: Basophils # (A) 0.07 X 10*3/uL (0.00-0.10); Basophils % (A) 1.2 %; Eosinophils # (A) 0.12 X 10*3/uL (0.04-0.35); Eosinophils % (A) 2.1 %; HCT 38.9 % (37.2-46.3); HGB 12.7 g/dL (12.0-15.0); Lymphocytes # (A) 1.92 X 10*3/uL (0.90-5.00); Lymphocytes % (A) 33.3 %; MCH 31.4 pg (27.0-32.0); MCHC 32.6 g/dL (32.0-37.0); Mean Platelet Volume 9.2 FL (9.5-12.2); Monocytes # (A) 0.35 X 10*3/uL (0.20-1.00); Monocytes % (A) 6.1 %; NRBC Per 100 WBC 0 X 10*3/uL (0.00-0.01); Neutrophils # (A) 3.29 X 10*3/uL (1.80-7.70); Neutrophils % (A) 57.1 %; Platelet Count 261 X 10*3/uL (140-440); RBC 4.05 X 10*6/uL (4.10-5.20); RDW 13.2 % (11.5-14.5); WBC 5.76 X 10*3/uL (4.50-10.00)
[2024-10-02 16:59] LABS: % Iron Saturation 23.99 (12.00-45.00)
== END | disposition home or self-care (01) ==
LOC: LABWHC1 10:58
PROVIDERS: ATTEND Nurse Practitioner Family
DX: D64.9 Anemia, unspecified (principal)
CPT/HCPCS: 36415; 82728; 83540; 83550; 85025

== ENCOUNTER → 2025-01-10 | Outpatient (CLI) | payer MEDICARE, OTHER ==
[2025-01-10 15:10] LABS: HCT 42.0 % (37.2-46.3); HGB 14.1 g/dL (12.0-15.0); MCH 30.3 pg (27.0-32.0); MCHC 33.6 g/dL (32.0-37.0); MCV 90.3 FL (80.0-97.0); NRBC Per 100 WBC 0 X 10*3/uL (0.00-0.01); Neutrophils % (A) 64.0 %; Platelet Count 250 X 10*3/uL (140-440); RBC 4.65 X 10*6/uL (4.10-5.20); RDW 13.1 % (11.5-14.5); WBC 6.51 X 10*3/uL (4.50-10.00)
[2025-01-10 15:11] LABS: Basophils # (A) 0.05 X 10*3/uL (0.00-0.10); Basophils % (A) 0.8 %; Eosinophils # (A) 0.16 X 10*3/uL (0.04-0.35); Eosinophils % (A) 2.5 %; Immature Grans, Automated 0.20 %; Lymphocytes # (A) 1.61 X 10*3/uL (0.90-5.00); Lymphocytes % (A) 24.7 %; Monocytes # (A) 0.51 X 10*3/uL (0.20-1.00); Monocytes % (A) 7.8 %; Neutrophils # (A) 4.17 X 10*3/uL (1.80-7.70)
[2025-01-10 15:29] LABS: ALT 71 U/L (8-44); AST 41 U/L (13-35); Albumin 4.2 g/dL (3.8-4.9); Albumin/Globulin Ratio 1.91 Ratio (1.60-3.17); Alkaline Phosphatase 62 U/L (41-126); Anion Gap 13.30 mmol/L (4.00-12.00); BUN/Creat Ratio 18.00 Ratio (12.00-20.00); Blood Urea Nitrogen 10.8 mg/dL (9.0-27.0); Calcium 9.2 mg/dL (8.7-10.3); Carbon Dioxide 27.7 mmol/L (21.6-31.8); Chloride 106 mmol/L (96-109); Cholesterol 95.00 mg/dL (0.00-200.00); Creatine Kinase 47 U/L (26-186); Globulin 2.2 g/dL (1.6-3.3); Glucose 94 mg/dL (70-110); HDL Cholesterol 47.20 mg/dL (40.00-60.00); LDL Cholesterol,Calculated 27.6 mg/dL (0.0-131.0); Potassium 4.2 mmol/L (3.5-5.5); Sodium 147 mmol/L (135-145); Total Protein 6.4 g/dL (6.2-8.2); Triglycerides 101.00 mg/dL (0.00-149.00); VLDL Calculation 20.20 mg/dL (5.00-40.00)
== END | disposition home or self-care (01) ==
LOC: LABWHC1 09:42
PROVIDERS: ATTEND Nurse Practitioner Family
DX: E78.5 Hyperlipidemia, unspecified (principal)
CPT/HCPCS: 36415; 80053; 80061; 82550; 83036; 85025